=== PATIENT | male | born 1985 | race Caucasian/White ===

== ENCOUNTER 2021-11-09 19:11 | Emergency (ER) | payer SELFPAY ==
[2021-11-09 19:26] VITALS: BP 143/92; PULSE 89; RESP 20; TEMP 36.6; O2SAT 98
--- NOTE | 2021-11-09 23:32 | ED.WOUNDLAC ---
HPI - Wound/Laceration General Chief Complaint: Wound/Laceration Stated Complaint: RIGHT 1ST FINGER LAC Time Seen by Provider: 11/09/21 22:37 Source: patient Mode of arrival: ambulatory Limitations: no limitations History of Present Illness HPI narrative: This is a 36-year-old male that presents emergency department for right second finger laceration sustained just prior to arrival. Reports he was using a mandolin to cut potatoes. He accidentally cut the tip of his finger off. Reports bleeding and pain to the area. Denies decreased range of motion or numbness. Related Data Allergies Allergy/AdvReac Type Severity Reaction Status Date / Time No Known Allergies Allergy Verified 11/09/21 19:28 Review of Systems Review of Systems: CONSTITUTIONAL: Denies fever SKIN: Reports laceration All systems reviewed & are unremarkable except as noted in HPI and below PMFSH Past Medical History Medical History (Updated 11/09/21 @ 23:37 by Kayla Sosa PA-C) No active medical problems Family History Family History (Updated 07/02/16 @ 09:53 by DOCTOR UNKNOWN) Father Diabetes mellitus Hypertension Mother Family history of malignant neoplasm Social History Social History Smoking status: Heavy tobacco smoker Second hand tobacco smoke exposure: No Alcohol intake: current Exam Narrative: GENERAL: Well-appearing, well-nourished, and in no acute distress. HEAD: Normocephalic, atraumatic. EYES: EOMI. EXTREMITIES: Normal range of motion. No edema. Right second finger tip with 1 cm circular superficial skin avulsion SKIN: Warm, dry, no rash. NEURO: No focal deficits. Alert and oriented x3. PSYCH: Normal mood and affect Course Vital Signs Vital signs: Vital Signs Temperature 98 F 11/09/21 19:26 Pulse Rate 89 11/09/21 19:26 Respiratory Rate 20 11/09/21 19:26 Blood Pressure 143/92 H 11/09/21 19:26 Pulse Oximetry 98 11/09/21 19:26 Oxygen Delivery Room Air 11/09/21 19:26 Temperature 98 F 11/09/21 19:26 Pulse Rate 89 11/09/21 19:26 Respiratory Rate 20 11/09/21 19:26 Blood Pressure 143/92 H 11/09/21 19:26 Pulse Oximetry 98 11/09/21 19:26 Oxygen Delivery Room Air 11/09/21 19:26 Procedures Laceration Laceration 1: Date: 11/09/21 Time: 23:34 Site: hand Side (If applicable): right Size (cm): 1 Description: other (Avulsion) Pre-repair: irrigated extensively ====== Skin Level ====== ====== Subcutaneous Layer ====== ====== Muscle Layer ====== ====== Tendon Layer ====== Dressing: Laceration was thoroughly irrigated and bleeding controlled with Surgicel MDM - Wound/Laceration MDM Narrative Medical decision making narrative: Patient presents to the emergency department for laceration sustained just prior to arrival. Wound was thoroughly irrigated. He is up-to-date on tetanus. Bleeding was controlled with Surgicel. Patient was instructed on continued wound care. He is to follow-up with primary care doctor. He was given warnings to return to the ER Critical Care Time Critical Care Time Critical Care Time: No Discharge Plan Discharge Clinical Impression: Laceration Patient Disposition: Home, Self-Care Condition: Stable Instructions: Skin Avulsion (ED) Additional Instructions: Return to the emergency department if you experience fever, redness or swelling of your wound, abnormal drainage from your wound, or any other symptoms that are concerning to you. Change top bandage daily. Leave bottom layer of gauze on until it falls off. Take oral antibiotic as prescribed Follow-up with your primary care doctor for wound check Prescriptions: New cephalexin 500 mg capsule 500 mg PO Q8H 5 Days Qty: 15 0RF Follow-up/Referrals: Madi Awad MD [Physician] - 1 Week PHYSICIAN,[employer]PERATOR [Primary Care Provider] -
[2021-11-10 00:01] VITALS: BP 150/94; PULSE 78; RESP 18; O2SAT 100
== END 2021-11-10 00:04 | disposition home or self-care (01) ==
PROVIDERS: Emergency Provider Emergency Medicine
DX: S61.210A Laceration without foreign body of right index finger without damage to nail, initial encounter (principal); F17.200 Nicotine dependence, unspecified, uncomplicated; W27.4XXA Contact with kitchen utensil, initial encounter; Y93.G1 Activity, food preparation and clean up
CPT/HCPCS: 99283

== ENCOUNTER 2022-03-14 09:03 | Emergency (ER) | payer SELFPAY ==
[2022-03-14 09:19] VITALS: BP 130/85; PULSE 91; RESP 18; TEMP 37.1; O2SAT 97
--- NOTE | 2022-03-14 09:28 | ED.URI ---
HPI - URI/Sore Throat General Chief Complaint: Upper Respiratory Infection Stated Complaint: sorethroat Time Seen by Provider: 03/14/22 09:28 Source: patient Mode of arrival: ambulatory Limitations: no limitations History of Present Illness HPI Narrative: 36-year-old male presents with complaint of fatigue, sore throat for 2-3 days. Reports difficulty swallowing due to pain and swelling to throat. Afebrile. No congestion or cough. Denies nausea vomiting diarrhea. Patient reports strep exposure from his nephew. all systems reviewed and negative except as noted above. Related Data Allergies Allergy/AdvReac Type Severity Reaction Status Date / Time No Known Allergies Allergy Verified 03/14/22 09:18 Review of Systems Review of Systems: CONSTITUTIONAL: Denies fever, chills, or sweats. reports fatigue. EYES: Denies visual changes, redness, or discharge. ENT: Denies rhinorrhea, congestion . Reports sore throat. Denies otalgia. CARDIOVASCULAR: Denies chest pain, palpitations, or edema. RESPIRATORY: Denies cough or dyspnea. GASTROINTESTINAL: Denies abdominal pain, nausea, vomiting, or diarrhea. GENITOURINARY: Denies dysuria or hematuria. SKIN: Denies rash or itching. MUSCULOSKELETAL: Denies back pain, joint pain, or myalgia. NEUROLOGIC: Denies headache, numbness, or weakness. PSYCHIATRIC: Denies anxiety or depression. All other systems reviewed are negative, except as documented in HPI. [facility] Past Medical History Medical History (Updated 03/14/22 @ 09:37 by Annabel Martinez NP) No active medical problems Family History Family History (Updated 07/02/16 @ 09:53 by DOCTOR UNKNOWN) Father Diabetes mellitus Hypertension Mother Family history of malignant neoplasm Social History Social History Smoking status: Heavy tobacco smoker Second hand tobacco smoke exposure: No Alcohol intake: current Comments At time of signature, agree with nursing past medical, surgical, social and family history. There is no relevant family history pertinent to the presenting complaint. Exam Narrative: GENERAL: This is a well-nourished, well-developed patient, in no apparent distress. HEAD: normocephalic, atraumatic. EYES: PERRL. Sclera clear/white. Vision is grossly intact. EARS: External ears normal, auditory canals clear and without drainage, TMs normal without perforation. Hearing grossly intact. NOSE: External nose normal with no obvious nasal discharge, nares without redness, no rhinorrhea. THROAT: Mucous membranes moist, Pharynx is beefy red, swollen, tonsils 3+ bilaterally with mild exudates. NECK: Neck supple, non-tender without lymphadenopathy, masses or thyromegaly. CARDIOVASCULAR: Regular rate and rhythm without murmurs, gallops, or rubs. RESPIRATORY: Clear to auscultation. Breath sounds equal bilaterally. No wheezes, rales, or rhonchi. SKIN: warm, Dry, intact with no suspicious lesions or rash, good texture and turgor. NEURO: awake, alert, and oriented to person, place and time. There were no obvious focal neurologic abnormalities. EXTREMITIES: No joint tenderness, effusion, or edema noted. No calf tenderness. Negative Homans sign bilaterally. BACK: Nontender without deformity. No CVA tenderness Course Course Level of Care: Express Care Visit Vital Signs Vital signs: Vital Signs Temperature 37.1 C 03/14/22 09:19 Pulse Rate 91 03/14/22 09:19 Respiratory Rate 18 03/14/22 09:19 Blood Pressure 130/85 03/14/22 09:19 Pulse Oximetry 97 03/14/22 09:19 Oxygen Delivery Room Air 03/14/22 09:19 Temperature 37.1 C 03/14/22 09:19 Pulse Rate 91 03/14/22 09:19 Respiratory Rate 18 03/14/22 09:19 Blood Pressure 130/85 03/14/22 09:19 Pulse Oximetry 97 03/14/22 09:19 Oxygen Delivery Room Air 03/14/22 09:19 Reports MDM - URI/Sore Throat MDM Narrative Medical decision making narrative: Patient is aware of diagnosis, understands and agrees to treatment pl
== END 2022-03-14 09:45 | disposition home or self-care (01) ==
PROVIDERS: Emergency Provider Nurse Practitioner Family
DX: J02.9 Acute pharyngitis, unspecified (principal)
CPT/HCPCS: 87081; 87880; 99213; G0463